=== PATIENT | male | born 1975 | race Caucasian/White ===

== ENCOUNTER 2020-02-15 00:24 | Outpatient (CLI) | payer OTHER, SELFPAY ==
[2020-02-15 17:53] LABS: SARS-CoV-2 RNA PCR Negative
== END 2020-02-15 00:25 | disposition home or self-care (01) ==
LOC: ANHCOVIDDT 00:24
PROVIDERS: PCP Emergency Medicine; Visit Provider Internal Medicine Gastroenterology
DX: Z01.818 Encounter for other preprocedural examination (principal); Z11.59 Encounter for screening for other viral diseases
CPT/HCPCS: 87635; C9803; U0003

== ENCOUNTER 2020-02-18 02:33 | Day surgery (SDC) | payer OTHER, SELFPAY ==
[2020-02-12 10:56] VITALS: BMI 35.2
--- NOTE | 2020-02-18 06:58 | WPDANESEPPF ---
Anes - Initial Pre Proc Eval Procedure: Operation Date: 02/18/20 08:00 Proposed Procedures p Esophagogastroduodenoscopy - Damon Barker MD Date/Time: 02/18/20 06:58 Surgeon: Damon Barker MD Pre Op Diagnosis: GERD Patient Data Age: 44 Gender: M Height: 6 ft 6 in Weight: 138.5 kg Allergies Allergy/AdvReac Type Severity Reaction Status Date / Time shrimp Allergy Unknown Dyspnea / Verified 10/12/18 15:17 SOB Home Medications Medication Instructions Recorded Confirmed Type aspirin 81 mg tablet,delayed 81 mg PO DAILY 07/24/19 02/12/20 History release ibuprofen 800 mg tablet 800 mg PO .qd PRN tablet 07/24/19 02/12/20 History magnesium 250 mg tablet 250 mg PO DAILY 07/24/19 02/12/20 History multivitamin 1 cap PO DAILY 07/24/19 02/12/20 History omega 1-lay-zfl-fish oil 1,000 mg 1 cap PO DAILY 07/24/19 02/12/20 History (120 mg-180 mg) capsule omeprazole 40 mg capsule,delayed 40 mg PO DAILY 07/24/19 02/12/20 History release rosuvastatin 5 mg tablet 5 mg PO DAILY 07/24/19 02/12/20 History metoprolol succinate 25 mg 25 mg PO DAILY #30 tablet 12/13/19 02/12/20 Rx tablet,extended release 24 hr lisinopril 10 mg PO DAILY 02/12/20 02/12/20 History Patient hx anesthesia problems: none Family hx anesthesia problems: none PMFSH Past Medical History Medical History (Updated 02/18/20 @ 06:58 by Chin Alfaro MD) Arthritis Heart murmur HTN (hypertension) Hyperlipidemia Obesity ANDREI (obstructive sleep apnea) Palpitation Surgical History Surgical History (Updated 02/18/20 @ 06:59 by Chin Alfaro MD) History of cervical spinal surgery History of lumbosacral spine surgery Family History Family History Father Diabetes mellitus Mother Diabetes mellitus Family history of atrial fibrillation Other Family history of alcoholism Family history of malignant neoplasm Hypertension Social History Social History Smoking status: Former smoker Alcohol intake: current Anes - Eval Final PreProcedure Day of Procedure 02/18/20 06:58 Patient weight: obese Heart: regular rate and rhythm Lungs: clear to auscultation Airway: Mallampati scale class II Neurological: alert and oriented Last oral intake: >/= 8 hours ASA classification: III Emergent: no Anesthetic plan: proceed Anesthesia type and monitoring: general GIVS and standard monitoring Informed Consent: The patient's anesthetic plan and its attendant risks and benefits were discussed with the patient/family/POA. Questions were solicited and answers provided to the satisfaction of the patient/family/POA.
[2020-02-18 07:03] VITALS: BMI 36.3
--- NOTE | 2020-02-18 07:05 | PM.HPGS ---
History of Present Illness History of Present Illness Consent: Risks, benefits, and alternatives have been discussed and questions answered. Patient agrees to proceed with procedure. Chief complaint: GERD Narrative: Michael Hennessy is a 44 year old W male referred for gastroscopy secondary to greater than 20 years for history of heartburn. Patient states this started age 18. Initially was controlled with H2 antagonist. He was recently switched to [id number] Nexium and his symptoms have almost resolved. He denies any dysphagia or odynophagia. No weight loss. No nausea vomiting hematemesis. However secondary to the longevity of his heartburn is referred to gastroscopy to rule out the possibility of Padilla's. [facility] Past Medical History Medical History (Updated 02/18/20 @ 06:58 by Chin Alfaro MD) Arthritis Heart murmur HTN (hypertension) Hyperlipidemia Obesity ANDREI (obstructive sleep apnea) Palpitation Surgical History Surgical History (Updated 02/18/20 @ 06:59 by Chin Alfaro MD) History of cervical spinal surgery History of lumbosacral spine surgery Family History Family History Father Diabetes mellitus Mother Diabetes mellitus Family history of atrial fibrillation Other Family history of alcoholism Family history of malignant neoplasm Hypertension Social History Social History Smoking status: Former smoker Alcohol intake: current Meds Home Medications and Allergies Home Medications Medication Instructions Recorded Confirmed Type aspirin 81 mg tablet,delayed 81 mg PO DAILY 07/24/19 02/12/20 History release ibuprofen 800 mg tablet 800 mg PO .qd PRN tablet 07/24/19 02/12/20 History magnesium 250 mg tablet 250 mg PO DAILY 07/24/19 02/12/20 History multivitamin 1 cap PO DAILY 07/24/19 02/12/20 History omega 6-zey-xpa-fish oil 1,000 mg 1 cap PO DAILY 07/24/19 02/12/20 History (120 mg-180 mg) capsule omeprazole 40 mg capsule,delayed 40 mg PO DAILY 07/24/19 02/12/20 History release rosuvastatin 5 mg tablet 5 mg PO DAILY 07/24/19 02/12/20 History metoprolol succinate 25 mg 25 mg PO DAILY #30 tablet 12/13/19 02/12/20 Rx tablet,extended release 24 hr lisinopril 10 mg PO DAILY 02/12/20 02/12/20 History Allergies Allergy/AdvReac Type Severity Reaction Status Date / Time shrimp Allergy Unknown Dyspnea / Verified 02/18/20 07:02 SOB Exam Const: Orientation/consciousness: patient oriented x3 Resp: Auscultation: clear to auscultation bilaterally Cardio: Rate: regular rate Rhythm: regular rhythm Heart sounds: no murmurs GI: GI Palp: Yes Soft to palpation, No Tenderness to palpation present (GI), Yes No hepatosplenomegaly present and No Palpable mass present Auscultation: normal bowel sounds Neuro: General: patient oriented x3 and no focal motor deficits Extrem: General: no pedal edema Assessment and Plan Additional Plan Gastroscopy for evaluation of chronic heartburn
[2020-02-18] MEDS: LACTATED RINGERS 1,000 ML 150 ML IV CONT (07:14)
[2020-02-18 08:14] VITALS: BP 109/81; PULSE 63; RESP 17; O2SAT 100
[2020-02-18 08:24] VITALS: BP 121/80; PULSE 60; RESP 17; O2SAT 95
[2020-02-18 08:34] VITALS: BP 132/83; PULSE 60; RESP 17; O2SAT 99
== END 2020-02-18 08:45 | disposition home or self-care (01) ==
PROVIDERS: PCP Emergency Medicine; Visit Provider Internal Medicine Gastroenterology
PROC: 0DJ08ZZ Inspection of Upper Intestinal Tract, Via Natural or Artificial Opening Endoscopic (ICD-10-PCS; CPT 43235; principal; 2020-02-18 08:00)
DX: K21.0 Gastro-esophageal reflux disease with esophagitis (principal); I10 Essential (primary) hypertension; E78.5 Hyperlipidemia, unspecified; G47.33 Obstructive sleep apnea (adult) (pediatric); E66.9 Obesity, unspecified; Z68.36 Body mass index [BMI] 36.0-36.9, adult; Z87.891 Personal history of nicotine dependence; Z79.82 Long term (current) use of aspirin
CPT/HCPCS: 43239; 88305; J2704; J7120

== ENCOUNTER 2024-02-19 11:04 | Emergency (ER) | payer OTHER, SELFPAY ==
[2024-02-19 11:13] VITALS: BP 152/94; PULSE 60; RESP 14; TEMP 36.7; O2SAT 100
--- NOTE | 2024-02-19 11:32 | ED.SKABFB ---
HPI - Skin/Abscess/Foreign Bdy General Chief complaint: Skin/Abscess/Foreign Body Stated complaint: Big Toe Rt Foot Irritation Time Seen by Provider: 02/19/24 11:32 Source: patient Mode of arrival: ambulatory Limitations: no limitations History of Present Illness HPI narrative: 48-year-old male presents with complaint of redness, pain, swelling to right great toe for approximately 1 week. Clip toenails prior to going on vacation. Started to notice pain and redness while on vacation. Was swimming in hotel pools and in the ocean. No history of ingrown toenail. All systems reviewed and negative except as noted above. Related Data Home Medications Medication Instructions Recorded Confirmed aspirin 81 mg tablet,delayed 81 mg PO DAILY 07/24/19 02/19/24 release multivitamin 1 cap PO DAILY 07/24/19 02/19/24 omega 4-vsi-jwq-fish oil 1,000 mg 1 cap PO DAILY 07/24/19 02/19/24 (120 mg-180 mg) capsule (Fish Oil) omeprazole 20 mg capsule,delayed 20 mg PO DAILY 07/28/21 02/19/24 release Allergies Allergy/AdvReac Type Severity Reaction Status Date / Time shrimp Allergy Unknown Dyspnea / Verified 02/19/24 11:13 SOB Review of Systems Review of Systems: CONSTITUTIONAL: Denies fever, chills, or sweats. EYES: Denies visual changes, redness, or discharge. ENT: Denies rhinorrhea, congestion, sore throat, or otalgia. CARDIOVASCULAR: Denies chest pain, palpitations, or edema. RESPIRATORY: Denies cough or dyspnea. GASTROINTESTINAL: Denies abdominal pain, nausea, vomiting, or diarrhea. GENITOURINARY: Denies dysuria or hematuria. SKIN: Denies rash or itching. Reports redness, swelling and tenderness to right great toe. MUSCULOSKELETAL: Denies back pain, joint pain, or myalgia. NEUROLOGIC: Denies headache, numbness, or weakness. PSYCHIATRIC: Denies anxiety or depression. All other systems reviewed are negative, except as documented in HPI. [facility] Past Medical History Medical History Arthritis Chest pain in adult Dependence on other enabling machines and devices Family history of early CAD Heart murmur Heart palpitations HTN (hypertension) Hyperlipidemia Obesity ANDREI (obstructive sleep apnea) Palpitation Right atrial enlargement Ventricular ectopic beats Surgical History Surgical History History of cervical spinal surgery History of lumbosacral spine surgery Family History Family History Father Diabetes mellitus Hypertension Heart disease Mother Diabetes mellitus Family history of atrial fibrillation Cancer Hypertension Heart disease Other Family history of alcoholism Family history of malignant neoplasm Social History Social History Smoking status: Never smoker Alcohol intake: current Alcohol use details: drinks beer on weekends Substance use: never Lack of Transportation: No Lack of Food: Never True Current Housing: I Have Housing Concerned About Future Housing: No Difficulty Paying Gas/Electric Bills: No Difficulty Paying for Meds: No Currently Unemployed: No Education: Trade/Vocational Certificate Difficulty w/ Childcare or Family Care: No Living arrangements: with family Occupation/Education: occupation 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 There is no relevant family history pertinent to the presenting complaint. Exam Narrative: GENERAL: This is a well-nourished, well-developed patient, in no apparent distress. HEAD: normocephalic, atraumatic. EYES: PERRL. Sclera clear/white. Vis
== END 2024-02-19 11:40 | disposition home or self-care (01) ==
PROVIDERS: Emergency Provider Nurse Practitioner Family; PCP Family Medicine
DX: L03.031 Cellulitis of right toe (principal); M19.90 Unspecified osteoarthritis, unspecified site; R01.1 Cardiac murmur, unspecified; I10 Essential (primary) hypertension; E78.5 Hyperlipidemia, unspecified; E66.9 Obesity, unspecified; Z68.33 Body mass index [BMI] 33.0-33.9, adult; Z79.82 Long term (current) use of aspirin
CPT/HCPCS: 99213; G0463

== ENCOUNTER 2024-04-16 12:45 | Emergency (ER) | payer OTHER, SELFPAY ==
--- NOTE | ~2024-04-16 | CT_ITS ---
EXAMINATION: CTA chest PE protocol DATE: 04/16/2024 16:43 INDICATION: Shortness of breath, chest pain and left arm numbness TECHNIQUE: Computed tomography (CT) pulmonary angiogram of the chest was performed with 100 mL Omnipa que-350 intravenous contrast. Additional 3D reconstructions utilizing coronal maximum intensity proje ction (MIP) were performed. Automated exposure control and iterative reconstruction technique were em ployed. The dose-length product was 605.33 mGy-cm. COMPARISON: None FINDINGS: No pulmonary embolism. Mild dependent atelectasis with small region of subsegmental air trapping in t he bilateral lower lobes. No pneumonia, pulmonary edema or pleural effusion. Heart size is normal. No pericardial effusion. Thoracic aorta is normal in caliber with no dissection. No pathologically enla rged thoracic lymphadenopathy. C6-C7 anterior spinal fusion with anterior plate and screw fixation. IMPRESSION: 1. No pulmonary embolism or other acute cardiopulmonary disease. Reviewed, dictated and finalized at location A.
--- NOTE | ~2024-04-16 | CT_ITS ---
CT brain wo con Ordering provider: Roula Dominguez APRN History: 49 years Male with . intermittent numbness, tingling L side . Comparison: None. Technique: CT of the head without contrast. The dose-length product was 605.33 mGy-cm. FINDINGS: BRAIN PARENCHYMA AND CSF SPACES: No midline shift, mass effect or hemorrhage. The brain parenchyma a nd CSF spaces are otherwise normal. VISUALIZED PARANASAL SINUSES: Well aerated. MASTOIDS: Well aerated. BONES: The bones appear intact. SOFT TISSUES: Visualized nasopharynx is normal. Superficial soft tissues are normal. IMPRESSION: No acute intracranial findings. Reviewed, dictated and finalized at location A.
--- NOTE | ~2024-04-16 | XR_ITS ---
EXAMINATION: XR chest 2V DATE: 04/16/2024 13:11 INDICATION: Chest pain. TECHNIQUE: Frontal and lateral views of the chest were obtained. COMPARISON: Chest 2 views 10/12/2018 FINDINGS: There is no pneumonia, pleural effusion, or pneumothorax. The heart size is normal. There a re changes of anterior fusion procedure in cervical spine. IMPRESSION: 1. No acute cardiopulmonary disease. Reviewed, dictated and finalized at location A.
[2024-04-16 12:50] VITALS: BP 172/90; PULSE 75; RESP 18; TEMP 36.7; O2SAT 95
--- NOTE | 2024-04-16 12:50 | ECG_ITS ---
Test Date: 2024-04-16 12:54:47 Measurements Intervals [place] Rate: 69 P: 51 TN: 159 QRS: 7 QRSD: 101 T: 17 QT: 402 QTc: 432 Interpretive Statements SINUS RHYTHM No previous ECG available for comparison Electronically Signed On 04-17-2024 10:13:54 CDT by Anastacia Wilkes M.D.
[2024-04-16 13:08] LABS: Basophils Absolute Auto 0.1 K/mm3 (0.0-0.1); Eosinophils Absolute Auto 0.2 K/mm3 (0-0.3); Hematocrit 44.8 % (42.0-52.0); Hemoglobin 15.3 g/dL (14.0-18.0); Immature Granulocyte Absolute 0.03 K/mm3 (0.00-0.031); Immature Granulocyte Percent A 0.3 % (0-0.5); Lymphocytes Absolute Auto 2.05 K/mm3 (0.9-3.2); Mean Corpuscular HGB Conc 34.2 g/dl (32-36); Mean Corpuscular Hemoglobin 28.8 pg (26-34); Mean Corpuscular Volume 84.2 fl (80-100); Mean Platelet Volume 11.4 fl (7.4-10.4); Monocytes Absolute Auto 0.5 K/mm3 (0.1-0.6); Monocytes Percent Auto 5.8 % (2.6-8.5); Neutrophils Absolute Auto 6.4 K/mm3 (1.3-6.7); Neutrophils Percent Auto 68.9 % (45.5-73.1); Platelet Count Result 217 k/mm3 (150-375); Red Blood Count 5.32 M/mm3 (4.6-6.20); Red Cell Distribution Width 12.8 % (11.5-14.5); White Blood Count 9.3 K/mm3 (4.5-10.0)
[2024-04-16 13:24] LABS: Alanine Aminotransferase 39 U/L (6-50); Albumin Level 4.6 g/dL (3.5-5.1); Alkaline Phosphatase 71 U/L (38-126); Anion Gap 8 mmol/L (4-12); Aspartate Amino Transferase 30 U/L (17-59); Bilirubin,Total 0.5 mg/dL (0.2-1.3); Blood Urea Nitrogen 14 mg/dL (9-20); Calcium 9.4 mg/dL (8.4-10.2); Carbon Dioxide 28 mmol/L (22-30); Chloride 101 mmol/L (98-107); Estimated CRCL calculation 170 ml/min; Estimated Glomerular Filt Rate > 60; Glucose 99 mg/dL (65-110); Lipase 46 U/L (23-300); Potassium 3.9 mmol/L (3.4-5.0); Sodium 137 mmol/L (137-145)
[2024-04-16 13:35] LABS: Troponin I < 0.012 ng/mL (0.000-0.034)
[2024-04-16 13:39] LABS: Prothrombin Time 13.3 Seconds (11.1-14.7)
[2024-04-16 13:40] LABS: Partial Thromboplastin Time 24.8 Seconds (22.3-36.8)
[2024-04-16] MEDS: ASPIRIN 81 MG CHEWABLE TABLET 324 MG PO (14:45)
[2024-04-16 14:51] VITALS: BP 159/109; PULSE 60; RESP 15; O2SAT 100
--- NOTE | 2024-04-16 15:05 | ED.CHESTPAIN ---
HPI - Chest Pain General Chief Complaint: Chest Pain Stated Complaint: cp Time Seen by Provider: 04/16/24 14:46 Source: patient Mode of arrival: ambulatory Limitations: no limitations History of Present Illness HPI narrative: Pt is a 49-year-old male who presents to the ER with complaints of intermittent L-sided facial heat, numbness and tingling that started this morning. He reports he has had four of these episodes this morning and they each last approximately 15 minutes. He also endorses dizziness and intermittent stabbing pain in his R chest and shoulder that lasts approximately 2-3 seconds. Pt reports he felt better after eating. He reports no history of diabetes, but does have a history of PVCs for which he takes Lopressor. Pt also endorses intermittent SOB this morning. Related Data Home Medications Medication Instructions Recorded Confirmed aspirin 81 mg tablet,delayed 81 mg PO DAILY 07/24/19 02/19/24 release multivitamin 1 cap PO DAILY 07/24/19 02/19/24 omega 1-nvs-sas-fish oil 1,000 mg 1 cap PO DAILY 07/24/19 02/19/24 (120 mg-180 mg) capsule (Fish Oil) omeprazole 20 mg capsule,delayed 20 mg PO DAILY 07/28/21 02/19/24 release Allergies Allergy/AdvReac Type Severity Reaction Status Date / Time shrimp Allergy Unknown Dyspnea / Verified 02/19/24 11:13 SOB Review of Systems Review of Systems: All systems reviewed & are unremarkable except as noted in HPI and below PMFSH Past Medical History Medical History Arthritis Chest pain in adult Dependence on other enabling machines and devices Family history of early CAD Heart murmur Heart palpitations HTN (hypertension) Hyperlipidemia Obesity ANDREI (obstructive sleep apnea) Palpitation Right atrial enlargement Ventricular ectopic beats Surgical History Surgical History History of cervical spinal surgery History of lumbosacral spine surgery Family History Family History Father Diabetes mellitus Hypertension Heart disease Mother Diabetes mellitus Family history of atrial fibrillation Cancer Hypertension Heart disease Other Family history of alcoholism Family history of malignant neoplasm Social History Social History Smoking status: Never smoker Alcohol intake: current Alcohol use details: drinks beer on weekends Substance use: never Lack of Transportation: No Lack of Food: Never True Current Housing: I Have Housing Concerned About Future Housing: No Difficulty Paying Gas/Electric Bills: No Difficulty Paying for Meds: No Currently Unemployed: No Education: Trade/Vocational Certificate Difficulty w/ Childcare or Family Care: No Living arrangements: with family Occupation/Education: occupation 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 HEENT: Head normocephalic, atraumatic. Eyes pupils equal round and reactive to light, extraocular movements intact. Tympanic membranes normal. Nares patent. Oropharynx clear. NECK: Supple, normal range of motion, no JVD. No lymphadenopathy. CARDIAC: Regular rate and rhythm without murmurs, rubs or gallops. RESPIRATORY: Clear to auscultation bilaterally. No wheezes, rales or rhonchi. ABDOMEN: Soft, nontender, normoactive bowel sounds throughout, no guarding, no rebound. No masses appreciated. EXTREMITIES: Normal range of motion, no swelling, clubbing or other deformities. NEUROLOGICAL: Cranial nerves II through XII grossly intact, no focal deficits noted. Normal gait, normal speech. SKIN: Warm,
[2024-04-16 15:32] LABS: Lipase 45 U/L (23-300)
[2024-04-16 15:33] VITALS: BP 142/99; PULSE 63; RESP 20; O2SAT 98
--- NOTE | 2024-04-16 15:33 | ECG_ITS ---
Test Date: 2024-04-16 15:57:05 Measurements Intervals [place] Rate: 55 P: 52 MN: 171 QRS: 4 QRSD: 102 T: 3 QT: 420 QTc: 404 Interpretive Statements SINUS BRADYCARDIA Compared to ECG 04/16/2024 12:54:47 NO SIGNIFICANT CHANGES Electronically Signed On 04-17-2024 10:16:12 CDT by Anastacia Wilkes M.D.
[2024-04-16 15:49] LABS: Hemoglobin A1C 5.7 % (<5.7)
[2024-04-16 16:27] LABS: Troponin I < 0.012 ng/mL (0.000-0.034)
[2024-04-16 16:47] LABS: Add Urine Microscopic? NO; Appearance Urine Clear (Clear); Bilirubin Urine Negative (Negative); Blood Urine Negative (Negative); Color Urine Yellow (Yellow); Glucose Urine UA Negative (Negative); Ketones Urine Negative (Negative); Leukocyte Esterase Ur Negative LEU/UL (Negative); Nitrate Urine Negative (Negative); Protein Urine Negative (Negative); Specific Grav Ur 1.031 (1.001-1.035); Urobilinogen Urine 0.2 mg/dL (<2.0)
[2024-04-16 17:07] LABS: D Dimer 0.26 ug/mL (<0.48)
[2024-04-16 17:50] VITALS: BP 152/91; PULSE 57; RESP 16; TEMP 36.6; O2SAT 99
== END 2024-04-16 17:52 | disposition home or self-care (01) ==
PROVIDERS: Student in an Organized Health Care Education/Training Program; Emergency Provider Registered Nurse; PCP Family Medicine
DX: R07.9 Chest pain, unspecified (principal); I10 Essential (primary) hypertension; F41.9 Anxiety disorder, unspecified; M19.90 Unspecified osteoarthritis, unspecified site; E78.5 Hyperlipidemia, unspecified; G47.30 Sleep apnea, unspecified
CPT/HCPCS: 36415; 70450; 71046; 71275; 80053; 81003; 83036; 83690; 84484; 85025; 85380; 85610; 85730; 93005; 99284; A9270; Q9967

== ENCOUNTER 2024-06-18 09:34 | Outpatient (CLI) | payer OTHER, SELFPAY ==
--- NOTE | 2024-06-18 09:52 | EST_ITS ---
Patient Info Name: Michael Hennessy Age: 49 years : 1975 Gender: Male Ht: 78 in Wt: 286 lbs BSA: 2.70 m2 HR: 58 bpm BP: 118 / 90 mmHg Exam Date: 06/18/2024 10:05 AM Exam Location: Echo Lab Patient Status: Outpatient Admit Date: 06/18/2024 Staff Ordering Physician: Jameel Husain DO Attending Provider: Jameel Hsuain DO Exercise Technologist: Elva Johnson RDCS Exercise Physician: Jameel Husain DO Exam Type: CA stress test treadmill Study Info A treadmill exercise stress test was performed. Summary 1. 1. Negative Virgilio exercise stress test for ischemic ST changes by ECG criteria. 2. 2. Good functional capacity, achieving 11.8 METs of workload. 3. 3. Appropriate HR response to exercise. 4. 4. Appropriate HR recovery at 1 minute post exercise. 5. 5. No imaging with stress testing. 6. 6. Patient informed of the above results. Protocol: Virgilio Stress ECG Details Stage: REST Duration (min): 1 min : 10 sec Speed (mph): 0.0 Grade (%): 0 HR (bpm): 56 SBP (mmHg): 118 DBP (mmHg): 90 METS: --- Stage: REST Duration (min): 6 min : 2 sec Speed (mph): 0.0 Grade (%): 0 HR (bpm): 56 SBP (mmHg): 118 DBP (mmHg): 90 METS: --- Stage: STAGE 1 Duration (min): 1 min : 0 sec Speed (mph): 1.7 Grade (%): 10 HR (bpm): 88 SBP (mmHg): 118 DBP (mmHg): 90 METS: --- Stage: STAGE 1 Duration (min): 2 min : 0 sec Speed (mph): 1.7 Grade (%): 10 HR (bpm): 94 SBP (mmHg): 118 DBP (mmHg): 90 METS: --- Stage: STAGE 1 Duration (min): 3 min : 0 sec Speed (mph): 1.7 Grade (%): 10 HR (bpm): 96 SBP (mmHg): 145 DBP (mmHg): 63 METS: --- Stage: STAGE 2 Duration (min): 1 min : 0 sec Speed (mph): 2.5 Grade (%): 12 HR (bpm): 109 SBP (mmHg): 145 DBP (mmHg): 63 METS: --- Stage: STAGE 2 Duration (min): 2 min : 0 sec Speed (mph): 2.5 Grade (%): 12 HR (bpm): 116 SBP (mmHg): 150 DBP (mmHg): 86 METS: --- Stage: STAGE 2 Duration (min): 3 min : 0 sec Speed (mph): 2.5 Grade (%): 12 HR (bpm): 120 SBP (mmHg): 150 DBP (mmHg): 86 METS: --- Stage: STAGE 3 Duration (min): 1 min : 0 sec Speed (mph): 3.4 Grade (%): 14 HR (bpm): 131 SBP (mmHg): 164 DBP (mmHg): 82 METS: --- Stage: STAGE 3 Duration (min): 2 min : 0 sec Speed (mph): 3.4 Grade (%): 14 HR (bpm): 141 SBP (mmHg): 164 DBP (mmHg): 82 METS: --- Stage: STAGE 3 Duration (min): 3 min : 0 sec Speed (mph): 3.4 Grade (%): 14 HR (bpm): 146 SBP (mmHg): 185 DBP (mmHg): 85 METS: --- Stage: STAGE 4 Duration (min): 1 min : 0 sec Speed (mph): 4.2 Grade (%): 16 HR (bpm): 162 SBP (mmHg): 185 DBP (mmHg): 85 METS: --- Stage: RECOVERY Duration (min): 1 min : 0 sec Speed (mph): 0.0 Grade (%): 0 HR (bpm): 126 SBP (mmHg): 160 DBP (mmHg): 88 METS: --- Stage: RECOVERY Duration (mi
== END 2024-06-18 09:35 | disposition home or self-care (01) ==
PROVIDERS: PCP Family Medicine; Visit Provider Internal Medicine Cardiovascular Disease
DX: R07.9 Chest pain, unspecified (principal)
CPT/HCPCS: 93017